=== PATIENT | female | born 2000 | race Caucasian/White ===

== ENCOUNTER 2020-12-02 08:15 | Outpatient (REF) | payer MEDICAID, SELFPAY ==
[2020-12-02 08:33] LABS: COVID-19 Test Negative (Negative)
== END 2020-12-02 08:16 | disposition home or self-care (01) ==
LOC: HO.LAB 08:15
PROVIDERS: Visit Provider Internal Medicine
DX: Z20.822 Contact with and (suspected) exposure to COVID-19 (principal)
CPT/HCPCS: 36415; 87635; C9803

== ENCOUNTER 2020-12-12 10:55 | Emergency (ER) | payer MEDICAID, SELFPAY ==
--- NOTE | ~2020-12-12 | CT_ITS ---
EXAMINATION: CT HEAD WITHOUT CONTRAST CLINICAL INFORMATION: Status post head injury. Headaches and dizziness. COMPARISON: None TECHNIQUE: Contiguous axial imaging was performed from the skull base to vertex without intravenous administration of contrast. This CT examination was performed using dose optimization techniques as appropriate, variously including the following: *Automated exposure control *Adjustment of mA and/or kV according to patient size (this includes techniques or standardized protocols for targeted exams where dose is matched to indication/reason for exam; i.e. extremities or head) *Use of iterative reconstruction technique DLP: 713 mGy-cm FINDINGS: There is no evidence of acute intracranial hemorrhage or territorial infarction. No abnormal mass effect or midline shift is seen. Sal to white matter differentiation is well preserved. No extra-axial fluid collections are identified. The ventricles are normal in size. There is no abnormal attenuation within the brain parenchyma. The osseous structures and soft tissues are normal. The mastoid air cells and visualized portions of the paranasal sinuses are well aerated. CT/CT head/brain wo con IMPRESSION: No acute intracranial pathology.
[2020-12-12 11:43] VITALS: BP 136/77; PULSE 80; RESP 18; TEMP 36.5; O2SAT 100; BMI 31.8
[2020-12-12 12:27] LABS: UPreg QC Valid YES; Urine Pregnancy NEGATIVE (NEGATIVE)
--- NOTE | 2020-12-12 12:47 | ED.HEATRA ---
HPI - Head Injury General Chief complaint: Head Injury Stated complaint: HEAD INJURY Time Seen by Provider: 12/12/20 12:09 Source: patient and family Mode of arrival: ambulatory Limitations: no limitations History of Present Illness HPI Narrative: 20-year-old female no significant past medical history presenting to the ED with complaints of head injury that occurred last night when she whacked a cabinet with her forehead no loss of consciousness although reports persistent pain with associated nausea and dizziness. Denies being on any blood thinners. Denies any other injury complaints or concerns at this time MD Complaint: head injury Onset (ago): day(s) (Last night) Mechanism of Injury: other (With cabinet) Place: home Loss of Consciousness: no Location of injury: frontal (/forehead) Severity: moderate Quality: aching Radiation: none Other Injuries: none Associated symptoms: nausea and other (Dizziness) Related Data Previous Rx's Medication Instructions Recorded acetaminophen [Tylenol Extra 1,000 mg PO QID PRN #14 tab 12/12/20 Strength] ondansetron HCl [Zofran] 4 mg PO Q8H PRN #14 tab 12/12/20 Allergies Allergy/AdvReac Type Severity Reaction Status Date / Time carrot Allergy Itching Verified 12/12/20 11:43 Review of Systems Review of Systems: Constitutional : No changes in activity, No lethargy, No recent prior head injury, No agitation, No increased fussiness ENT/Mouth : No Ear Pain, No Nasal discharge/drainage Eyes: No Eye Pain, No Swelling, No Redness, No Foreign Body, No Vision Changes Cardiovascular : No Chest Pain, No SOB Respiratory : No Cough Gastrointestinal : Positive Nausea, No Vomiting, No abdominal Pain Genitourinary : No Dysuria, No Urinary Frequency, No Urinary Incontinence, No Urgency, No Flank Pain Musculoskeletal : No joint pain, No neck stiffness, No back pain/injury Skin : No lacerations Neuro : Positive head injury, Positive persistent dizziness, No unsteady gait, No Paresthesias, No Loss of Consciousness, No altered mental status, No Headache Yes all other systems are reviewed and are negative [facility] Past Medical History Attestation statement: The following information was validated with the patient. Medical History Patient denies medical problems Social History Social History Advance Directives: No Advance Directives Information Provided: No Physical Exam Vital Signs: Vital Signs: Last Vital Signs Temp 97.7 F 12/12/20 11:43 Pulse 80 12/12/20 11:43 Resp 18 12/12/20 11:43 BP 136/77 12/12/20 11:43 Pulse Ox 100 12/12/20 11:43 Body Mass Index 31.8 Vital signs have been reviewed as normal and appeared to be correct. Blood pressure normal. Heart rate normal. Respiration rate normal. Temperature normal. Oxygen saturation normal. Appearance: Alert. Oriented X3. No acute distress. Head: Normal external exam. Normocephalic. Atraumatic. Able to rotate head bilaterally. Eyes: PERRLA. EOMI. No nystagmus noted. Conjunctiva and sclera normal. Eyelids normal. Corneal reflex normal. ENT: EAC normal. TM's Normal. Hearing normal. Pharynx normal. Uvula midline. tongue midline. Moist mucous membranes. No trismus noted. No drooling noted. No muffled voice noted. No nystagmus noted. Neck: Normal inspection. Neck supple. FROM. No adenopathy. Trachea midline. Thyroid Normal. No meningeal signs. No neck mass noted. CVS: Normal heart rate and rhythm. Heart sound normal. No murmurs noted. Pulses normal throughout. Respiratory: No respiratory distress. Painless inspiration. Breath sounds normal. No wheezes/rales/rhonchi noted. Chest nontender. No accessory muscle usage noted or decreased air movement noted. Abdomen: Soft and nontender. Bowel sounds normal in all 4 quadrants. No distention noted. No organomegaly noted. No visible injury noted. Back: No CVA tenderness. Full range of motion noted. Skin: Skin warm and dry. Normal skin color. Normal skin turgor. No rashes/lesions/lacerations noted. Extremities: No lower extremity edema. Extremities exhibit normal range of motion. Extremities nontender. Able to shrug shoulders bilaterally and keep up against resistance. Neuro: Oriented X 3. No motor deficit. No sensory deficit. Reflexes normal. Moving all extremities. No focal motor deficits. Cranial nerves II-XI intact bilaterally. Facial strength normal. Normal cognition. Speech normal. Gait normal. Strength 5/5 throughout. No pronator drift. No tremor noted. No fasciculations noted. No rigidity noted. Muscle tone normal throughout. No asterixis noted. Fgyymj-[id number] test normal. Heel to smart test normal. Tandem gait normal. Does not sway with eyes open. Romberg test negative. Rapid alternating movement upper extremity normal. Rapid alternating movement lower extremity normal. Hand drop from overhead Misses face. NIHSS score 0. Course Course Course Narrative: CT scan of brain within normal limits no acute processes noted. Will DC home with symptomatic treatment instructions to return if any new or worsening symptoms follow-up with primary care provider. Patient understanding with this plan. MDM - Head Injury MDM Narrative Medical decision making narrative: 12:23pm 20-year-old female no significant past medical history presenting to the ED with complaints of head injury that occurred last night when she whacked a cabinet with her forehead no loss of consciousness although reports persistent pain with associated nausea and dizziness. - on exam patient alert oriented x3. Mild tenderness to palpation to frontal/forehead aspect. No obvious deformities. No nystagmus is noted. Patient has a normal steady gait. Normal neuro exam. - Plan: CT scan of brain without contrast then re-evaluate. Differential Diagnosis Differential diagnosis: Likely concussion without loss of consciousness, closed head injury and postconcussion syndrome Medical Records Attestation: I reviewed the patient's medical records. Lab Data Labs: Lab Results 12/12/20 Range/Units 12:12 Urine Test NEGATIVE (NEGATIVE) Imaging Data CT scan of brain without contrast: Attestation: I personally reviewed and interpreted this imaging study as follows: Radiologist's impression: FINDINGS: There is no evidence of acute intracranial hemorrhage or territorial infarction. No abnormal mass effect or midline shift is seen. Sal to white matter differentiation is well preserved. No extra-axial fluid collections are identified. The ventricles are normal in size. There is no abnormal attenuation within the brain parenchyma. The osseous structures and soft tissues are normal. The mastoid air cells and visualized portions of the paranasal sinuses are well aerated. CT/CT head/brain wo con IMPRESSION: No acute intracranial pathology. Discharge Plan Discharge Clinical Impression: Closed head injury, Concussion without loss of consciousness, Postconcussion syndrome Patient Disposition: Home, Self-Care Instructions: Concussion (ED), Head Injury (ED) Additional Instructions: Your CT scan of your brain was normal you do not have any internal brain damage or any internal bleeding or fractures/broken bones at this time. You most likely have a concussion. Return if any new or worsening symptoms and follow up with her primary care provider. Prescriptions: New ondansetron HCl [Zofran] 4 mg tablet 4 mg PO Q8H PRN (Reason: nausea and vomiting) Qty: 14 RF: 0 acetaminophen [Tylenol Extra Strength] 500 mg tablet 1,000 mg PO QID PRN (Reason: fever or pain) Qty: 14 RF: 0 Referrals: [facility] [Primary Care Provider] - 2 days Stand Alone Forms: Work/School Release Print Language: Slovenian
== END 2020-12-12 15:09 | disposition home or self-care (01) ==
PROVIDERS: Emergency Provider Emergency Medicine
DX: S06.0X0A Concussion without loss of consciousness, initial encounter (principal); W22.8XXA Striking against or struck by other objects, initial encounter; R42 Dizziness and giddiness; R11.0 Nausea; Y93.9 Activity, unspecified; Y92.030 Kitchen in apartment as the place of occurrence of the external cause; Y99.9 Unspecified external cause status
CPT/HCPCS: 70450; 81025; 99283; 99284

== ENCOUNTER → 2021-01-06 08:37 | Outpatient (BNVA) | payer MEDICAID, SELFPAY | PROVIDERS: Visit Provider Advanced Practice Midwife | DX: N92.6 Irregular menstruation, unspecified (principal); E66.8 Other obesity | CPT/HCPCS: 81025; 99202 ==

== ENCOUNTER 2021-01-13 13:47 | Outpatient (REF) | payer MEDICAID, SELFPAY ==
--- NOTE | ~2021-01-13 | US_ITS ---
EXAMINATION: OBSTETRICAL ULTRASOUND, FIRST TRIMESTER HISTORY: 20-year-old with uncertain LMP LMP: 11/15/2020 COMPARISON: None in this TECHNIQUE: Real time transabdominal imaging with color and M-mode Doppler. Vaginal ultrasound was performed using an endovaginal probe. FINDINGS: A single, live IUP CRL of 2.1 mm c/w 5.6wks is noted. Heart Rate: 73 beats per minute. Both maternal ovaries are seen and appear normal. GESTATIONAL AGE: 1. GA from LMP: 8.3 wks 2. GA from AUA: 5.6 wks ESTIMATED DATE OF DELIVERY: 1. MARIJA from LMP: 08/22/2021 2. MARIJA from AUA: 09/03/2021 US/US OB pelvic and transvaginal IMPRESSION: 1. A single live IUP 2. CRL is consistent with 5.6 weeks. Please adjust her MARIJA to 09/03/2021 based on today's examination 3. The heart rate is slow. However, it does may be appropriate for this gestational age. Clinical correlation is advised. Consider a follow-up ultrasound in approximately one week if clinically indicated. Thank you very much for this referral. This note was generated with a voice recognition program. Please excuse any errors which may have been overlooked during my review of this note. Sometimes these errors may affect the content or meaning of a given sentence.
== END 2021-01-13 13:48 | disposition home or self-care (01) ==
LOC: HO.US 13:47
PROVIDERS: Visit Provider Advanced Practice Midwife
DX: O20.0 Threatened abortion (principal)
CPT/HCPCS: 76801; 76817; 99212

== ENCOUNTER 2021-01-14 13:15 | Emergency (ER) | payer MEDICAID, SELFPAY ==
--- NOTE | ~2021-01-14 | US_ITS ---
EXAMINATION: OBSTETRICAL ULTRASOUND, FIRST TRIMESTER HISTORY: 20-year-old with uncertain LMP LMP: 11/15/2020 COMPARISON: None in this TECHNIQUE: Real time transabdominal imaging with color and M-mode Doppler. Vaginal ultrasound was performed using an endovaginal probe. FINDINGS: A single, live IUP CRL of 2.1 mm c/w 5.6wks is noted. Heart Rate: 73 beats per minute. Both maternal ovaries are seen and appear normal. GESTATIONAL AGE: 1. GA from LMP: 8.3 wks 2. GA from AUA: 5.6 wks ESTIMATED DATE OF DELIVERY: 1. MARIJA from LMP: 08/22/2021 2. MARIJA from AUA: 09/03/2021 US/US OB pelvic and transvaginal IMPRESSION: 1. A single live IUP 2. CRL is consistent with 5.6 weeks. Please adjust her MARIJA to 09/03/2021 based on today's examination 3. The heart rate is slow. However, it does may be appropriate for this gestational age. Clinical correlation is advised. Consider a follow-up ultrasound in approximately one week if clinically indicated. Thank you very much for this referral. This note was generated with a voice recognition program. Please excuse any errors which may have been overlooked during my review of this note. Sometimes these errors may affect the content or meaning of a given sentence.
[2021-01-14 14:07] VITALS: BP 136/73; PULSE 95; RESP 16; TEMP 37.2; O2SAT 98; BMI 40.1
[2021-01-14 15:03] VITALS: BP 132/84; PULSE 96; TEMP 37.5; O2SAT 100
--- NOTE | 2021-01-14 15:13 | PC.NURSE ---
provider to bedside for primary eval
--- NOTE | 2021-01-14 15:31 | ED_ITS ---
HPI - General Chief complaint: Abdominal Pain Stated complaint: ABD PAIN Time Seen by Provider: 01/14/21 15:06 Source: patient Mode of arrival: ambulatory Limitations: no limitations History of Present Illness HPI Narrative: 20-year-old female who is [id number] currently 5.6 weeks gestational age had an ultrasound yesterday by OBGYN and had a low heart tone of 79 and was instructed to have a repeat ultrasound in 1 week presenting to the ED with complaints of suprapubic abdominal pain/cramping since last night. Denies any dizziness, fevers, chest pain, shortness of breath, dysuria, hematuria, abno rmal vaginal discharge, abnormal vaginal bleeding, diarrhea or constipation or any other symptoms complaints or concerns at this time. MD Complaint: abdominal pain Onset (ago): day(s) (Since last night) Pain Consistency: constant Location: pelvis (Suprapubic abdomen) Severity: mild Quality: Cramping and Aching Relieving factors: none Exacerbating factors: none Associated symptoms: denies other symptoms Vaginal discharge: none Vaginal bleeding: none Date of Last Menstrual Period: 11/15/20 Patient : Yes Number of Weeks : 5.6 OB History - Current : other (She was seen yesterday by OBGYN and they reported possible and MAB. Her ultrasound showed 5.6 weeksGA and a low heart tone of 79 and they instructed her to have a repeat ultrasound in 1 week) care: followed by OB Related Data : 1 Para: 0 Total number of abortions (spontaneous and elective): 0 Previous Rx's Medication Instructions Recorded acetaminophen [Tylenol Extra 1,000 mg PO QID PRN #14 tab 12/12/20 Strength] ondansetron HCl [Zofran] 4 mg PO Q8H PRN #14 tab 12/12/20 Allergies Allergy/AdvReac Type Severity Reaction Status Date / Time carrot Allergy Itching Verified 01/06/21 09:23 Review of Systems Review of Systems: Constitutional : No Fever, No Chills ENT/Mouth : No sore throat, No Rhinorrhea Eyes: No Eye Pain, No Redness Cardiovascular : No Chest Pain, No SOB Respiratory : No Cough, No Sputum, No Wheezing Gastrointestinal : No Nausea, No Vomiting, No Diarrhea, positive abdominal pain, Genitourinary : No irregular bleeding, No Dysuria, No Urinary Frequency, No pelvic pain, No abnormal vaginal discharge Musculoskeletal : No Myalgias Skin : No rash Neuro : No Weakness, No Headache Psych : No Anxiety/Panic, No Depression Heme/Lymph: No bruising, No Lymphadenopathy Endocrine : No Polyuria, No Polydipsia Yes all other systems are reviewed and are negative [facility] Past Medical History Attestation statement: The following information was validated with the patient. Medical History Asthma Patient denies medical problems : 1 Para: 0 Total number of abortions (spontaneous and elective): 0 Date of Last Menstrual Period: 11/15/20 Social History Social History Alcohol intake: never Patient Tobacco Use Status: Never used Tobacco Use of substances other than those prescribed or required for medical reasons: No Advance Directives: No Advance Directives Information Provided: No Patient : Yes Physical Exam Vital Signs: Vital Signs: Last Vital Signs Temp 99.5 F 01/14/21 15:03 Pulse 96 01/14/21 15:03 Resp 16 01/14/21 14:07 BP 132/84 01/14/21 15:03 Pulse Ox 100 01/14/21 15:03 Body Mass Index 40.1 vital signs have been reviewed as normal and appeared to be correct. Blood pressure normal. Heart rate normal. Respiration rate normal. Temperature normal. Oxygen saturation normal. Appearance: Alert. Oriented X3. No acute distress. Head: Normal external exam. Normocephalic. Eyes: PERRLA. EOMI. Conjunctiva and sclera normal. Eyelids normal. ENT: Pharynx normal. Uvula midline. Moist mucous membranes. Neck: Normal inspection. Neck supple. FROM. No adenopathy. No meningeal signs. CVS: Normal heart rate and rhythm. Heart sound normal. No murmurs noted. Pulses normal throughout. Respiratory: No respiratory distress. Painless inspiration. Breath sounds normal. No wheezes/rales/rhonchi noted. Chest nontender. No accessory muscle usage noted or decreased air movement noted. Abdomen: Soft and mild tenderness to palpation suprapubically. Nondistended. No guarding. No rigidity. Bowel sounds normal in all 4 quadrants. No distention noted. No organomegaly noted. No visible injury noted. No rebound tenderness. Negative Rovsing sign. Negative obturator's sign. Negative psoas sign. Negative Regalado sign. Back: No CVA tenderness. Full range of motion noted. Skin: Skin warm and dry. Normal skin color. Normal skin turgor. No rashes/lesions/lacerations noted. Extremities: No lower extremity edema noted. No calf tenderness noted. Extremities exhibit normal range of motion. Extremities nontender. Neuro: Oriented X 3. No motor deficit. No sensory deficit. Reflexes normal. Normal steady gait. Course Course Course Narrative: 15:15pm - 20-year-old female who is [id number] currently 5.6 weeks gestational age had an ultrasound yesterday by OBGYN and had a low heart tone of 79 and was instructed to have a repeat ultrasound in 1 week presenting to the ED with c omplaints of suprapubic abdominal pain/cramping since last night. Plan: Labs, UA, serum quant an OB ultrasound then re-evaluate. Reevaluation(s) Reevaluation #1: - all labs within normal limits. Serum quant still pending. P atient also pending OB ultrasound. Sign out to next provider pending above. Time: 16:49 Procedures Perimortem Number of Weeks : 5.6 MDM - OB/Uterine Contractions Medical Records Attestation: I reviewed the patient's medical records. Lab Data Attestation: I reviewed the patient's lab results. Result diagrams: 01/14/21 15:30 01/14/21 15:30 Labs: Lab Results 01/14/21 01/14/21 01/14/21 Range/Units 15:30 15:30 15:30 WBC 9.5 (4.8-10.8) X10*3/uL RBC 4.86 (4.20-5.50) X10*6/uL Hgb 13.5 (12.0-16.0) g/dl Hct 38.7 (37-47) % MCV 79.6 L (80-98) fL MCH 27.8 (27.0-33.0) pg MCHC 34.9 (31.0-35.0) g/dl RDW 11.8 (11.0-16.0) % Plt Count 341 (160-400) X10*3/uL MPV 8.4 L (9.4-12.3) fL Immature Gran % (Auto) 0.2 (0.0-0.4) % Neut % (Auto) 78.2 H (45-73) % Lymph % (Auto) 15.8 L (20-40) % [place] % (Auto) 5.4 (2-11) % Eos % (Auto) 0.3 (0-4) % Baso % (Auto) 0.1 (0-2) % Lymph # (Auto) 1.5 (1.2-4.9) X10*3/uL [place] # (Auto) 0.5 (0.1-1.2) X10*3/uL Eos # (Auto) 0.0 (0.0-0.4) X10*3/uL Baso # (Auto) 0.0 (0.0-0.2) X10*3/uL Abs Immat Gran (auto) 0.02 (0.00-0.03) X10*3/uL Absolute Neuts (auto) 7.4 (2.0-8.3) X10*3/uL Absolute Nucleated RBC 0.000 (0.0-0.012) X10*3/uL Nucleated RBC % (auto) 0.0 (0.0-0.2) /100WBC PT 12.2 (10.8-13.0) SEC INR 1.0 (0.9-1.1) Sodium 138 (135-145) mmol/L Potassium 4.7 (3.3-5.1) mmol/L Chloride 106 (96-108) mmol/L Carbon Dioxide 26 (22-29) mmol/L Anion Gap 11 L (12-20) BUN 9 (9-16) mg/dL Creatinine 0.66 (0.5-1.4) mg/dL Estim Creat Clear Calc 155.8 Estimated GFR > 60 Random Glucose 87 (60-115) mg/dL Calcium 9.5 (8.4-10.2) mg/dL Magnesium 1.9 (1.6-2.6) mg/dL Total Bilirubin 0.3 (0.0-1.0) mg/dL AST 16 (5-31) U/L ALT 11 (0-31) U/L Alkaline Phosphatase 69 (39-117) U/L Total Protein 6.9 (6.5-8.0) g/dL Albumin 4.1 (3.5-5.0) g/dL Discharge Plan Discharge Prescriptions: No Action ondansetron HCl [Zofran] 4 mg tablet 4 mg PO Q8H PRN (Reason: nausea and vomiting) Qty: 14 RF: 0 acetaminophen [Tylenol Extra Strength] 500 mg tablet 1,000 mg PO QID PRN (Reason: fever or pain) Qty: 14 RF: 0
[2021-01-14 15:37] LABS: Basophils Percent Auto 0.1 % (0-2); Eosinophils Percent Auto 0.3 % (0-4); Hematocrit 38.7 % (37-47); Hemoglobin 13.5 g/dl (12.0-16.0); Imm Gran Abs Auto 0.02 X10*3/uL (0.00-0.03); Imm Gran Pct Auto 0.2 % (0.0-0.4); Lymphocytes Absolute Auto 1.5 X10*3/uL (1.2-4.9); Lymphocytes Percent Auto 15.8 % (20-40); MANUAL DIFF FLAG NO; Mean Corpuscular HGB Conc 34.9 g/dl (31.0-35.0); Mean Corpuscular Hemoglobin 27.8 pg (27.0-33.0); Mean Corpuscular Volume 79.6 fL (80-98); Mean Platelet Volume 8.4 fL (9.4-12.3); Monocytes Absolute Auto 0.5 X10*3/uL (0.1-1.2); Monocytes Percent Auto 5.4 % (2-11); Neutrophils Absolute Auto 7.4 X10*3/uL (2.0-8.3); Neutrophils Percent Auto 78.2 % (45-73); Platelet Count 341 X10*3/uL (160-400); Red Blood Count 4.86 X10*6/uL (4.20-5.50); Red Cell Distribution Width 11.8 % (11.0-16.0); White Blood Count 9.5 X10*3/uL (4.8-10.8)
[2021-01-14 15:49] LABS: Prothrombin Time 12.2 SEC (10.8-13.0)
[2021-01-14 16:22] LABS: Alanine Aminotransferase 11 U/L (0-31); Albumin Level 4.1 g/dL (3.5-5.0); Alkaline Phosphatase 69 U/L (39-117); Anion Gap 11 (12-20); Aspartate Amino Transferase 16 U/L (5-31); Bilirubin Total 0.3 mg/dL (0.0-1.0); Blood Urea Nitrogen 9 mg/dL (9-16); Calcium 9.5 mg/dL (8.4-10.2); Carbon Dioxide 26 mmol/L (22-29); Chloride 106 mmol/L (96-108); Creatinine Clr Calc Pharmacy 155.8; Estimated Glomerular Filt Rate > 60; Glucose Random 87 mg/dL (60-115); Magnesium 1.9 mg/dL (1.6-2.6); Potassium 4.7 mmol/L (3.3-5.1); Sodium 138 mmol/L (135-145); Total Protein 6.9 g/dL (6.5-8.0)
[2021-01-14 17:38] VITALS: BP 128/66
[2021-01-14 20:08] LABS: Glucose Urine UA NEG (NEG); Leukocyte Esterase Urine NEG (NEG); Nitrite Urine NEG (NEG); Specific Gravity - Urine 1.025 (1.005-1.025); Urine Blood NEG (NEG); Urine Ketones NEG (NEG); Urine Protein NEG (NEG-TRACE)
--- NOTE | 2021-01-14 20:11 | PC.NURSE ---
UA obtained and sent.
[2021-01-14 20:15] LABS: Appearance Urine HAZY; Color Urine YELLOW
[2021-01-14 20:26] LABS: Glucose Urine UA NEG (NEG); Leukocyte Esterase Urine NEG (NEG); Nitrite Urine NEG (NEG); Specific Gravity - Urine 1.025 (1.005-1.025); Urine Blood NEG (NEG); Urine Ketones NEG (NEG); Urine Protein NEG (NEG-TRACE)
[2021-01-14 20:30] LABS: Appearance Urine HAZY; Color Urine YELLOW
[2021-01-14 21:00] VITALS: BP 110/80; PULSE 84; RESP 16
--- NOTE | 2021-01-14 21:06 | PC.NURSE ---
This RN calling U/S as the U/S results have not been read/posted. U/S not answering. Pt discussing issue in Radiology. Radiology looking into issue.
--- NOTE | 2021-01-14 21:32 | PC.NURSE ---
Pt provided with U/S results, aware of plan to DC home. Pt awaiting DC paperwork.
== END 2021-01-14 21:47 | disposition home or self-care (01) ==
PROVIDERS: Nurse Practitioner Family; Physician Assistant Medical; Emergency Provider Emergency Medicine
DX: O26.891 Other specified pregnancy related conditions, first trimester (principal); R10.30 Lower abdominal pain, unspecified; O36.8310 Maternal care for abnormalities of the fetal heart rate or rhythm, first trimester, not applicable or unspecified; Z3A.01 Less than 8 weeks gestation of pregnancy
CPT/HCPCS: 36415; 76801; 76817; 80053; 81003; 83735; 84702; 85025; 85610; 86900; 86901; 99284

== ENCOUNTER 2021-01-20 09:49 | Outpatient (REF) | payer MEDICAID, SELFPAY ==
--- NOTE | ~2021-01-20 | US_ITS ---
EXAMINATION: OBSTETRICAL ULTRASOUND, FIRST TRIMESTER HISTORY: 20-year-old at 7.1 weeks of gestation Viability LMP: Unknown COMPARISON: 01/14/2021 TECHNIQUE: Real time transabdominal imaging with color and M-mode Doppler. FINDINGS: A single, live IUP CRL of 4.8 mm c/w 6.2wks is noted. No heart motion seen. The right ovary is within normal limits. Left ovary was not visible. No free fluid in US/US OB <= 14 weeks fetus IMPRESSION: 1. The finding is consistent with missed AB. Discussion: A reviewed today's findings and informed her that she had miscarried. We discussed some of the common causes for first trimester miscarriage. She was informed that one first trimester miscarriage does not influence her prognosis for a successful, subsequent pregnancies. I reviewed the options for management MAB. These include expectant management, medical and dilatation and curettage. She will follow-up with you discuss her decision. Thank you very much for this referral. Total time 20 minutes. The time spent was devoted to counseling the patient about the disease and diagnosis, coordinating care including reviewing her records, pertinent lab data and studies, as well as discussing diagnostic evaluation and workup, plan therapeutic interventions and future disposition of care. This includes any additional research needed to obtain further information in formulating the plan of care of this patient. This note was generated with a voice recognition program. Please excuse any errors which may have been overlooked during my review of this note. Sometimes these errors may affect the content or meaning of a given sentence.
== END 2021-01-20 09:50 | disposition home or self-care (01) ==
LOC: HO.US 09:49
PROVIDERS: Visit Provider Advanced Practice Midwife
DX: O20.0 Threatened abortion (principal); N92.6 Irregular menstruation, unspecified
CPT/HCPCS: 76801

== ENCOUNTER → 2021-01-23 12:08 | Outpatient (BNVA) | payer MEDICAID, SELFPAY | PROVIDERS: Visit Provider Advanced Practice Midwife ==

== ENCOUNTER → 2021-01-27 11:29 | Outpatient (BNVA) | payer MEDICAID, SELFPAY | PROVIDERS: Visit Provider Advanced Practice Midwife | CPT/HCPCS: 99212 ==

== ENCOUNTER 2021-02-08 19:06 | Emergency (ER) | payer MEDICAID, SELFPAY ==
--- NOTE | ~2021-02-08 | US_ITS ---
EXAMINATION: PELVIC ULTRASOUND CLINICAL INFORMATION: Exam on 01/20 showed no FHR,pt states no passage of POC? w/ vag bleed now COMPARISON: 01/20/2021 TECHNIQUE: Transabdominal scanning only was performed. FINDINGS: The gestational sac seen on the 01/20/2021 study is no longer present . There is some focal thickening in the lower uterine segment consistent with retained products of conception. No free intraperitoneal fluid was seen. The ovaries were not imaged. US/US OB limited IMPRESSION: Previously seen gestational sac no longer present. Focal thickening in the lower uterine segment may represent retained products of conception.
[2021-02-08 19:11] VITALS: BP 141/84; PULSE 102; RESP 18; TEMP 36.6; O2SAT 98; BMI 40.7
--- NOTE | 2021-02-08 19:47 | PC.NURSE ---
1945-pt gave what appeared to be intact sac wrapped in tissue paper. sample placed in specimen cup, pt lable time and neumonics on sample. double bagged. specimen placed at change station.
--- NOTE | 2021-02-08 21:24 | PC.NURSE ---
PT REPORTS SOAKING 7-8 PADS OVER PAST 2 HRS WITH INCREASE IN CLOTS. SKIN COLOUR APPROPRIATE FOR ETHNICITY, WARM, DRY.
[2021-02-08 21:30] VITALS: BP 142/88; PULSE 88; RESP 17; TEMP 37.2; O2SAT 100
--- NOTE | 2021-02-08 22:08 | ED_ITS ---
HPI - General Chief complaint: Vaginal Bleeding Stated complaint: miscarriage Time Seen by Provider: 02/08/21 21:11 Source: patient Mode of arrival: ambulatory History of Present Illness HPI Narrative: 20-year-old female with history of asthma comes in after she was diagnosed with then threatened approximately 2 weeks ago and then had follow-up appointment that was reviewed by myself on at which time patient stated that she had not passed products of conception, but now presents stating that vaginal bleeding began earlier today with significant cramping. Patient states that while she was waiting in the waiting room that she passed a significant amount of clotting and thereafter she states that her abdominal cramping as well as the bleeding has begun to improve significantly. Related Data Previous Rx's Medication Instructions Recorded acetaminophen [Tylenol Extra 1,000 mg PO QID PRN #14 tab 12/12/20 Strength] ondansetron HCl [Zofran] 4 mg PO Q8H PRN #14 tab 12/12/20 Allergies Allergy/AdvReac Type Severity Reaction Status Date / Time carrot Allergy Itching Verified 01/27/21 11:30 Review of Systems Review of Systems: Pertinent positives and negatives as stated in HPI 10 point review of systems is otherwise negative. PMFSH Past Medical History Source: nursing notes reviewed Medical History Asthma Patient denies medical problems Social History Social History Alcohol intake: never Patient Tobacco Use Status: Never used Tobacco Advance Directives: No Advance Directives Information Provided: Yes Patient : Yes (miscarrage.) Physical Exam Vital Signs: Vital Signs: Last Vital Signs Temp 98.5 F 02/08/21 23:25 Pulse 91 02/08/21 23:25 Resp 18 02/08/21 23:25 BP 113/74 02/08/21 23:25 Pulse Ox 100 02/08/21 23:25 Body Mass Index 40.7 VITAL SIGNS: Reviewed. GENERAL: Well developed, well nourished, in no acute distress. HEAD: Normocephalic/atraumatic, EYES: PERRLA, EOMI without pallor EARS: Ext canals without abnormality OROPHARYNX: no oral lesions noted, posterior pharynx clear, moist mucosa NECK: Supple, no adenopathy LUNGS: Normal breath sounds. No adventitious sounds or accessory muscle use. SpO2<100> CARDIOVASCULAR: Regular rate and rhythm without noted murmurs ABDOMEN: Soft, non-tender, non-distended with bowel sounds. SKIN: Inspection of the skin reveals no rashes, pallor NEUROLOGIC: Alert and oriented x 4. Strength and sensation to light touch were grossly intact x 4. Course Course Course Narrative: 20-year-old female with history and clinical presentation consistent with passage of products of conception without evidence infection as would be noted with fever, chills. Patient is currently undergoing RhoGAM protocol through her padded products finisher as per the note on 01/27. Patient is known to be O negative. Will be obtaining ultrasound as well as providing patient with combination analgesics. 0200: Pelvic exam performed with small amounts of clots noted but no active hemorrhaging visualized at cervical os even when patient instructed to cough. Review of all investigations consistent with evidence requiring RhoGAM shot and patient was provided with 300 mcg IM. She was then discharged in stable condition with instructions to follow-up with Dr. Humphries/Anabell Cast in the morning. Reevaluation(s) Reevaluation #1: I discussed the case with Dr Humphries, who recommends evaluating the cervix for possible tissue retention by doing a pelvic, perform an antibody screen and if negative recommends administering 300 mcg of RhoGAM. Time: 00:33 MDM - OB/Uterine Contractions Lab Data Labs: Lab Results 02/09/21 Range/Units 02:38 Blood Type O Negative Antibody Screen NEGATIVE Antibody Titer TNP Discharge Plan Discharge Clinical Impression: SAB (spontaneous ) Patient Disposition: Home, Self-Care Instructions: Miscarriage (ED), Rho(D) Immune Globulin (By injection) Additional Instructions: You will need to follow-up with Anabell Cast/Dr Humphries in the morning. Recommend Tylenol/ibuprofen as needed for pain control. Return to the ER for acute worsening of symptoms, especially vaginal bleeding. Prescriptions: No Action ondansetron HCl [Zofran] 4 mg tablet 4 mg PO Q8H PRN (Reason: nausea and vomiting) Qty: 14 RF: 0 acetaminophen [Tylenol Extra Strength] 500 mg tablet 1,000 mg PO QID PRN (Reason: fever or pain) Qty: 14 RF: 0 Referrals: Anabell Cast CNM [Certified Nurse Rn Float] - 2 days (Re-evaluation after patient passed POC and treated with initial RhoGAM.)
[2021-02-08] MEDS: Acetaminophen 325 MG TABLET 975 MG PO (22:38)
[2021-02-08] MEDS: Ibuprofen 400 MG TABLET PO (22:38)
[2021-02-08 23:25] VITALS: BP 113/74; PULSE 91; RESP 18; TEMP 36.9; O2SAT 100
[2021-02-09 04:00] VITALS: BP 137/89; PULSE 84; RESP 16; O2SAT 100
[2021-02-09] MEDS: Rho(D) Immune Globulin 300 MCG SYRINGE IM (04:08)
== END 2021-02-09 04:14 | disposition home or self-care (01) ==
PROVIDERS: Emergency Provider Student in an Organized Health Care Education/Training Program
DX: O03.9 Complete or unspecified spontaneous abortion without complication (principal)
CPT/HCPCS: 76815; 86850; 86900; 86901; 96372; 99284; J2790

== ENCOUNTER → 2021-02-10 11:14 | Outpatient (BNVA) | payer MEDICAID, SELFPAY | PROVIDERS: Visit Provider Advanced Practice Midwife ==

== ENCOUNTER 2021-02-28 12:49 | Outpatient (REF) | payer MEDICAID, SELFPAY ==
[2021-03-01 06:13] LABS: CT PCR NOT DETECTED (Not Detect.); NG PCR NOT DETECTED (Not Detect.)
[2021-03-01 09:37] LABS: BV Int Neg Control Negative (Negative); BV Int Pos Control Positive (Positive)
== END 2021-02-28 12:50 | disposition home or self-care (01) ==
LOC: HO.LAB 12:49
PROVIDERS: Visit Provider Advanced Practice Midwife
DX: O02.1 Missed abortion (principal); Z11.3 Encounter for screening for infections with a predominantly sexual mode of transmission; E66.8 Other obesity; Z20.2 Contact with and (suspected) exposure to infections with a predominantly sexual mode of transmission
CPT/HCPCS: 87480; 87491; 87510; 87591; 87660; 99212

== ENCOUNTER 2022-06-23 12:41 | Emergency (ER) | payer MEDICAID, SELFPAY ==
--- NOTE | ~2022-06-23 | XR_ITS ---
EXAMINATION: XR ANKLE, RIGHT CLINICAL INFORMATION: Popliteal and ankle pain COMPARISON: None TECHNIQUE: AP, lateral, and mortise views of the right ankle. FINDINGS: The bones and soft tissues are normal. No fracture. Alignment is anatomic. Joint spaces are maintained. No joint effusion. XR/XR ankle RT min 3V IMPRESSION: Normal right ankle.
--- NOTE | 2022-06-23 13:19 | ED.LOWEXIN ---
HPI - Extremity Injury (Lower) General Chief Complaint: Extremity Injury, Lower <Tanna Mccrary CNP - Last Filed: 06/23/22 13:23> Stated Complaint: r foot pain <Tanna Mccrary CNP - Last Filed: 06/23/22 13:23> Time Seen by Provider: 06/23/22 14:11 <Tanna Mccrary CNP - Last Filed: 06/23/22 13:23> Source: patient <ARGENTINA Russell - Last Filed: 06/23/22 14:58> Mode of arrival: ambulatory <ARGENTINA Russell Last Filed: 06/23/22 14:58> Limitations: no limitations <ARGENTINA Russell Last Filed: 06/23/22 14:58> History of Present Illness HPI Narrative: 22 yo female presents to the ER for evaluation of right foot pain after she injured it at work. 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 She denies rolling the ankle and states she was just walking when she felt the pain. Yesterday was black Saturday so she needed to continue working despite having some pain. She woke up today with ongoing pain on the top of the right foot into the ankle. She thinks she may have overdone it yesterday. She reports some swelling at the top of the right foot but no ankle swelling. No other injuries. <ARGENTINA Russell - Last Filed: 06/23/22 14:58> MD complaint: foot injury <ARGENTINA Russell - Last Filed: 06/23/22 14:58> Onset (ago): day(s) <ARGENTINA Russell Last Filed: 06/23/22 14:58> Injury: Right: foot <ARGENTINA Russell Last Filed: 06/23/22 14:58> Type of Injury: unknown <ARGENTINA Russell Last Filed: 06/23/22 14:58> Place: work <ARGENTINA Russell Last Filed: 06/23/22 14:58> Severity: moderate <ARGENTINA Russell Last Filed: 06/23/22 14:58> Severity scale (1-10): 5 <ARGENTINA Russell - Last Filed: 06/23/22 14:58> Relieving factors: immobilization and rest <ARGENTINA Russell - Last Filed: 06/23/22 14:58> Exacerbating factors: weight bearing, movement and palpation <ARGENTINA Russell - Last Filed: 06/23/22 14:58> Associated symptoms: swelling and ambulatory <ARGENTINA Russell - Last Filed: 06/23/22 14:58> Other symptoms: none <ARGENTINA Russell - Last Filed: 06/23/22 14:58> Related Data Home Medications: Home Medications Medication Instructions Recorded Confirmed ibuprofen 600 mg tablet 600 mg PO Q6H PRN 02/10/21 02/28/21 Previous Rx's Medication Instructions Recorded metronidazole 500 mg tablet 500 mg PO BID 7 days #14 tabs 03/03/21 (Flagyl) ibuprofen 600 mg tablet 600 mg PO TID PRN pain #20 tabs 06/23/22 <Tanna Mccrary CNP - Last Filed: 06/23/22 13:23> Allergies/Adverse Reactions: Allergies Allergy/AdvReac Type Severity Reaction Status Date / Time carrot Allergy Itching Verified 02/28/21 13:38 <Tanna Mccrary CNP - Last Filed: 06/23/22 13:23> Review of Systems Review of Systems: Constitutional: No Fever, No Chills Cardiovascular: No Chest Pain, No SOB Gastrointestinal: No Nausea, No Vomiting Musculoskeletal: + joint pain, +Myalgias Skin: No Skin Lesions, No rash Neuro: No Weakness, No Numbness Psych: + Anxiety/Panic Heme/Lymph: No Bruising, No Lymphadenopathy <ARGENTINA Russell - Last Filed: 06/23/22 14:58> [facility] Past Medical History Medical History: Medical History Asthma Patient denies medical problems <Tanna Mccrary CNP - Last Filed: 06/23/22 13:23> Social History Social History: Social History Alcohol intake: never Patient Tobacco Use Status: Never used Tobacco Advance Directives: No Advance Directives Information Provided: No <Tanna Mccrary CNP - Last Filed: 06/23/22 13:23> Physical Exam Vital Signs: Vital Signs: Last Vital Signs Pulse 85 06/23/22 13:20 Resp 16 06/23/22 13:20 Pulse Ox 100 06/23/22 13:20 O2 Del Method 06/23/22 13:20 BMI result Body Mass Index 33.6 <Tanna Mccrary CNP - Last Filed: 06/23/22 13:23> Vital Signs: Last Vital Signs Pulse 85 06/23/22 13:20 Resp 16 06/23/22 13:20 Pulse Ox 100 06/23/22 13:20 O2 Del Method 06/23/22 13:20 BMI result Body Mass Index 33.6 <ARGENTINA Russell - Last Filed: 06/23/22 14:58> Appearance: Alert. Oriented X3. No acute distress. HEENT: normal inspection CVS: Normal heart rate and rhythm. Pulses normal. Respiratory: No respiratory distress. Skin: Skin warm and dry. Normal skin color. Normal skin turgor. No rashes. Extremities: Right dorsal foot with mild generalized swelling and mild tenderness throughout without any point tenderness. Normal range of motion of the right ankle. Normal range of motion of all toes. No sensory deficit. Foot is warm and well perfused. Neurovascularly intact. Neuro: Oriented X 3. No motor deficit. No sensory deficit. Steady gait, no limp <ARGENTINA Russell - Last Filed: 06/23/22 14:58> Course Course Course Narrative: RME: 22 y.o. female presenting for traumatic right ankle pain. Onset of symptoms was 5 days ago while at work, was walking through store, heard a pop and began to develop pain that is made worse with weight bearing. movement. Has not trialed any medications to help with this. States she did apply ice without improvement. No past injuries to this ankle. PE: Mild anterior ankle soft tissue swelling, 2+ DP/PT pulse bilaterally, decreased AROM. Plan: XR right ankle, declines ibuprofen/tylenol <Tanna Mccrary CNP - Last Filed: 06/23/22 13:23> Reevaluation(s) Reevaluation #1: X-rays normal. Will treat for sprain/strain. Placed an Kevin wrap for comfort and support. We discussed rice therapy and she was encourage follow-up with her primary care doctor if pain persists. Stable for DC. <ARGENTINA Russell - Last Filed: 06/23/22 14:58> Procedures Orthopedic Splinting/Casting Injury #1: Lower Extremity Injury Location: ankle and foot <ARGENTINA Russell - Last Filed: 06/23/22 14:58> Lower Extremity Immobilizer: Kevin wrap <ARGENTINA Russell - Last Filed: 06/23/22 14:58> Discharge Plan Discharge Clinical Impression: Ankle sprain <Tanna Mccrary CNP - Last Filed: 06/23/22 13:23> Patient Disposition: Home, Self-Care <Tanna Mccrary CNP - Last Filed: 06/23/22 13:23> Instructions: Ankle Sprain (ED) <Tanna Mccrary CNP - Last Filed: 06/23/22 13:23> Additional Instructions: Your x-ray today was normal. Rest your foot and elevate your foot when possible. Recommend KEVIN wrap for support and compression. Use ice several times per day for the next 48 hours. You may bear weight as tolerated. Take Motrin and/or Tylenol as needed for pain. Follow up with your doctor as needed. <Tanna Mccrary CNP - Last Filed: 06/23/22 13:23> Prescriptions: New ibuprofen 600 mg tablet 600 mg PO TID PRN (Reason: pain) Qty: 20 0RF No Action metronidazole [Flagyl] 500 mg tablet 500 mg PO BID 7 Days Qty: 14 0RF Rx Instructions: Take with food, Avoid alcohol and vinegar products ibuprofen 600 mg tablet 600 mg PO Q6H PRN <Tanna Mccrary CNP - Last Filed: 06/23/22 13:23> Stand Alone Forms: Work/School Release <Tanna Mccrary CNP - Last Filed: 06/23/22 13:23>
[2022-06-23 13:20] VITALS: PULSE 85; RESP 16; O2SAT 100; BMI 33.6
== END 2022-06-23 15:16 | disposition home or self-care (01) ==
LOC: HO.ED 14:51
PROVIDERS: Emergency Provider Emergency Medicine
DX: S93.401A Sprain of unspecified ligament of right ankle, initial encounter (principal); X50.1XXA Overexertion from prolonged static or awkward postures, initial encounter; Y93.01 Activity, walking, marching and hiking; Y92.512 Supermarket, store or market as the place of occurrence of the external cause; Y99.0 Civilian activity done for income or pay
CPT/HCPCS: 73610; 99282; 99283

== ENCOUNTER 2024-06-14 21:01 | Emergency (ER) | payer OTHER, SELFPAY ==
[2024-06-14 21:03] VITALS: BP 148/89; PULSE 97; RESP 18; TEMP 36.9; O2SAT 99; BMI 33.7
[2024-06-14 21:23] LABS: MANUAL DIFF FLAG NO
[2024-06-14 21:24] LABS: Basophils Percent Auto 0.3 % (0-2); Eosinophils Percent Auto 0.5 % (0-4); Hematocrit 36.4 % (37.0-47.0); Hemoglobin 12.9 g/dl (12.0-16.0); Imm Gran Abs Auto 0.02 X10*3/uL (0.00-0.03); Imm Gran Pct Auto 0.3 % (0.0-0.4); Lymphocytes Absolute Auto 2.3 X10*3/uL (1.2-4.9); Lymphocytes Percent Auto 30.6 % (20-40); Mean Corpuscular HGB Conc 35.4 g/dl (31.0-35.0); Mean Corpuscular Hemoglobin 28.5 pg (27.0-33.0); Mean Corpuscular Volume 80.4 fL (80.0-98.0); Mean Platelet Volume 8.2 fL (9.4-12.3); Monocytes Absolute Auto 0.4 X10*3/uL (0.1-1.2); Monocytes Percent Auto 5.8 % (2-11); Neutrophils Absolute Auto 4.6 x10*3/uL (2.0-8.3); Neutrophils Percent Auto 62.5 % (45-73); Platelet Count 347 X10*3/uL (160-400); Red Blood Count 4.53 X10*6/uL (4.20-5.50); Red Cell Distribution Width 11.7 % (11.0-16.0); White Blood Count 7.4 X10*3/uL (4.8-10.8)
[2024-06-14 21:43] LABS: Appearance Urine Clear; Color Urine Yellow; Glucose Urine UA Negative (Negative); Leukocyte Esterase Urine Trace (Negative); Nitrite Urine Negative (Negative); Specific Gravity - Urine <= 1.005 (1.005-1.025); UMIC TRIGGER UACC YES; Urine Blood Moderate (2+) (Negative); Urine Ketones Negative (Negative); Urine Protein Negative (Neg-Trace)
[2024-06-14 21:44] LABS: UPreg QC Valid YES; Urine Pregnancy NEGATIVE (NEGATIVE)
[2024-06-14 21:54] LABS: Bacteria Urine None Seen (None Seen); Hyaline Casts Urine 0-2 /LPF (0-2); RBC Urine 0-2 /HPF (0-2); Squamous Epithelial Cell Urine 0-2 /HPF (0-2); WBC Urine 0-5 /HPF (0-5)
[2024-06-14 21:56] VITALS: BP 137/73; PULSE 79; RESP 16; TEMP 36.8; O2SAT 98
[2024-06-14 21:57] LABS: Alanine Aminotransferase 10 U/L (0-31); Albumin Level 4.1 g/dL (3.5-5.0); Alkaline Phosphatase 72 U/L (39-117); Anion Gap 14 (12-20); Aspartate Amino Transferase 22 U/L (5-31); Bilirubin Direct 0.2 mg/dL (0.0-0.5); Bilirubin Total 0.6 mg/dL (0.0-1.0); Blood Urea Nitrogen 9 mg/dL (9-16); Carbon Dioxide 22 mmol/L (22-29); Chloride 99 mmol/L (96-108); Creatinine Clr Calc Pharmacy 127.1; Estimated Glomerular Filt Rate > 60; Glucose Random 100 mg/dL (60-115); Lipase 12 U/L (8-78); Potassium 3.4 mmol/L (3.3-5.1); Sodium 132 mmol/L (135-145); Total Protein 6.8 g/dL (6.5-8.0)
[2024-06-14] MEDS: 0.9 % Sodium Chloride 1,000 ML 999 ML IV (22:56)
[2024-06-14] MEDS: ondansetron HCL 4 MG/2 ML VIAL IVPUSH (22:56)
[2024-06-14 23:33] VITALS: BP 135/76; PULSE 73; RESP 17; TEMP 37; O2SAT 100
--- NOTE | 2024-06-15 00:29 | ED_ITS ---
HPI - Nausea/Vomiting/Diarrhea General Chief complaint: Abdominal Pain Stated complaint: vomiting, headache Time Seen by Provider: 06/14/24 21:54 Source: patient Limitations: no limitations History of Present Illness ED Provider: Margot Mays PA-C HPI Narrative: 24-year-old otherwise healthy female presents with nausea vomiting since earlier today. Patient has a sick contacts at work with same symptoms. Denies abdominal pain, diarrhea, fever, preceding cough or cold symptoms. Associated nausea: Yes Related Data Home Medications ?Medication ?Instructions ?Recorded ?Confirmed ibuprofen 600 mg tablet 600 mg PO Q6H PRN 02/10/21 02/28/21 Previous Rx's ?Medication ?Instructions ?Recorded metronidazole 500 mg tablet 500 mg PO BID 7 days #14 tabs 03/03/21 (Flagyl) ibuprofen 600 mg tablet 600 mg PO TID PRN pain #20 tabs 06/23/22 ondansetron 4 mg disintegrating 4 mg PO Q8H PRN nausea and 06/15/24 tablet vomiting #10 tabs Allergies Allergy/AdvReac Type Severity Reaction Status Date / Time carrot Allergy Itching Verified 06/14/24 21:04 Review of Systems 2 Review of Systems: Yes all other systems are reviewed and are negative Constitutional: Constitutional: Denies fatigue and Denies fever(s) Cardiovascular: Cardiovascular: Denies chest pain and Denies dyspnea Respiratory: Respiratory: Denies cough and Denies dyspnea Gastrointestinal: Gastrointestinal: Denies abdominal pain, Denies diarrhea, Reports nausea and Reports vomiting Endocrine: Endocrine: Denies fatigue PMFSH Past Medical History Attestation statement: The following information was validated with the patient. Medical History Asthma Patient denies medical problems Social History Social History Alcohol intake: never Patient Tobacco Use Status: Never used Tobacco Smoked in Last 30 Days: No Use of substances other than those prescribed or required for medical reasons: No Any prior treatment program specific to substance use: No Advance Directives: No Advance Directives Information Provided: No Do you have a plan to hurt others: No Plan Patient : No Physical Exam 2 Vital Signs: Vital Signs: Last Vital Signs Temp 98.6 F 06/14/24 23:33 Pulse 73 06/14/24 23:33 Resp 17 06/14/24 23:33 BP 135/76 06/14/24 23:33 Pulse Ox 100 06/14/24 23:33 O2 Del Method Room Air 06/14/24 23:33 BMI result Body Mass Index 33.7 Const: Other: Alert, well-appearing Orientation/consciousness: patient oriented x3 Resp: Other: Nonlabored respirations Cardio: Other: Normal peripheral perfusion GI: Other: Abdomen is soft, nondistended nontender no guarding Skin: Other: Warm dry no rash Neuro: General: patient oriented x3, no focal motor deficits and CN's II-XI intact bilaterally Psych: Other: Calm cooperative Medications Administered Discontinued Medications Generic Name Dose Route Start Last Admin Trade Name Freq PRN Reason Stop Dose Admin Sodium Chloride 1,000 mls @ 999 mls/hr 06/14/24 22:30 06/14/24 22:56 Ns IV 06/14/24 23:30 999 mls/hr .Q1H1M ELADIA Administration Ondansetron HCl 4 mg 06/14/24 22:30 06/14/24 22:56 Ondansetron Hcl 4 Mg/2 Ml Vial IVPUSH 06/14/24 22:31 4 mg ONCE ONE Administration Medical Decision Making Medical Decision Making MDM Narrative: 24-year-old otherwise healthy female presents with nausea vomiting since earlier today. Patient has a sick contacts at work with same symptoms. Denies abdominal pain, diarrhea, fever, preceding cough or cold symptoms. No relevant chronic issues History: Per patient I have considered the following differential diagnoses: Viral gastroenteritis, acute intra-abdominal pathology Plan: Screening labs including a urinalysis were obtained from triage, everything unremarkable, she is not . Patient has sick contacts with same symptoms, this is likely viral. We will give symptomatic care with fluid and Zofran, no indication for imaging I have independently reviewed the following tests: Labs: No leukocytosis, not anemic, no electrolyte abnormality, urine not infected, patient not Lab Data 06/14/24 21:17 06/14/24 21:17 Labs: Lab Results 06/14/24 06/14/24 Range/Units 21:17 21:35 WBC 7.4 (4.8-10.8) X10*3/uL RBC 4.53 (4.20-5.50) X10*6/uL Hgb 12.9 (12.0-16.0) g/dl Hct 36.4 L (37.0-47.0) % MCV 80.4 (80.0-98.0) fL MCH 28.5 (27.0-33.0) pg MCHC 35.4 H (31.0-35.0) g/dl RDW 11.7 (11.0-16.0) % Plt Count 347 (160-400) X10*3/uL MPV 8.2 L (9.4-12.3) fL Immature Gran % (Auto) 0.3 (0.0-0.4) % Neut % (Auto) 62.5 (45-73) % Lymph % (Auto) 30.6 (20-40) % [place] % (Auto) 5.8 (2-11) % Eos % (Auto) 0.5 (0-4) % Baso % (Auto) 0.3 (0-2) % Lymph # (Auto) 2.3 (1.2-4.9) X10*3/uL [place] # (Auto) 0.4 (0.1-1.2) X10*3/uL Eos # (Auto) 0.0 (0.0-0.4) X10*3/uL Baso # (Auto) 0.0 (0.0-0.2) X10*3/uL Abs Immat Gran (auto) 0.02 (0.00-0.03) X10*3/uL Absolute Neuts (auto) 4.6 (2.0-8.3) x10*3/uL Absolute Nucleated RBC 0.000 (0.0-0.012) X10*3/uL Nucleated RBC % (auto) 0.0 (0.0-0.2) /100WBC Sodium 132 L (135-145) mmol/L Potassium 3.4 (3.3-5.1) mmol/L Chloride 99 (96-108) mmol/L Carbon Dioxide 22 (22-29) mmol/L Anion Gap 14 (12-20) BUN 9 (9-16) mg/dL Creatinine 0.71 (0.5-1.4) mg/dL Estim Creat Clear Calc 127.1 Estimated GFR > 60 Random Glucose 100 (60-115) mg/dL Calcium 9.0 (8.4-10.2) mg/dL Total Bilirubin 0.6 (0.0-1.0) mg/dL Direct Bilirubin 0.2 (0.0-0.5) mg/dL AST 22 (5-31) U/L ALT 10 (0-31) U/L Alkaline Phosphatase 72 (39-117) U/L Total Protein 6.8 (6.5-8.0) g/dL Albumin 4.1 (3.5-5.0) g/dL Lipase 12 (8-78) U/L Urine Color Yellow Urine Appearance Clear Urine pH 6.0 (5.0-9.0) Ur Specific Thompson <= 1.005 (1.005-1.025) Urine Protein Negative (Neg-Trace) mg/dL Urine Glucose (UA) Negative (Negative) mg/dL Urine Ketones Negative (Negative) mg/dL Urine Blood Moderate (2+) H (Negative) Urine Nitrite Negative (Negative) Ur Leukocyte Esterase Trace H (Negative) Urine RBC 0-2 (0-2) /HPF Urine WBC 0-5 (0-5) /HPF Ur Squamous Epith Cells 0-2 (0-2) /HPF Urine Bacteria None Seen (None Seen) Hyaline Casts 0-2 (0-2) /LPF Urine Test NEGATIVE (NEGATIVE) Discharge Plan Discharge Clinical Impression: Viral syndrome Patient Disposition: Home, Self-Care Instructions: Viral Syndrome (ED) Additional Instructions: You likely have virus causing your symptoms. See home care instructions. Uses Zofran as needed for nausea. Follow up with your primary care provider as needed. To know all of your labs including your urinalysis were normal. Prescriptions: New ondansetron 4 mg tablet,disintegrating 4 mg PO Q8H PRN (Reason: nausea and vomiting) Qty: 10 0RF No Action metronidazole [Flagyl] 500 mg tablet 500 mg PO BID 7 Days Qty: 14 0RF Rx Instructions: Take with food, Avoid alcohol and vinegar products ibuprofen 600 mg tablet 600 mg PO TID PRN (Reason: pain) Qty: 20 0RF ibuprofen 600 mg tablet 600 mg PO Q6H PRN Stand Alone Forms: Work/School Release Print Language: Maori
[2024-06-15 00:51] VITALS: BP 138/74; PULSE 73; RESP 17; TEMP 36.8; O2SAT 100
[2024-06-15 00:57] VITALS: BP 138/74; PULSE 73; RESP 17; TEMP 36.8; O2SAT 100
== END 2024-06-15 00:58 | disposition home or self-care (01) ==
PROVIDERS: Emergency Provider Emergency Medicine Emergency Medical Services
DX: B34.9 Viral infection, unspecified (principal); R11.2 Nausea with vomiting, unspecified; R51.9 Headache, unspecified; Z79.899 Other long term (current) drug therapy
CPT/HCPCS: 36415; 80048; 80076; 81001; 81025; 83690; 85025; 96361; 96374; 99284; 99285; J2405

== ENCOUNTER 2024-09-24 07:52 | Emergency (ER) | payer OTHER, SELFPAY ==
--- NOTE | ~2024-09-24 | XR_ITS ---
EXAMINATION: XR FOOT, LEFT CLINICAL INFORMATION: pain s/p fall COMPARISON: None available. TECHNIQUE: AP, lateral, and oblique views of the left foot. FINDINGS: No acute cortical disruption or malalignment. No lytic or blastic lesions. No subcutaneous emphysema. No metallic or radiopaque foreign body. XR/XR foot LT min 3V IMPRESSION: No acute fracture or dislocation. Electronically signed by: Guanakito Sharma MD 09/24/2024 08:19 AM M[facility]ELA
--- NOTE | ~2024-09-24 | XR_ITS ---
EXAMINATION: XR ANKLE, LEFT CLINICAL INFORMATION: pain s/p fall COMPARISON: Correlated to left foot x-rays dated September 24, 2024. TECHNIQUE: AP and oblique views of the left ankle. FINDINGS: Edema pattern bimalleolar involving mostly the lateral malleolus. No acute cortical disruption or gross malalignment. No lytic or blastic lesions. XR/XR ankle LT min 3V IMPRESSION: Edema pattern/soft tissue contusion bimalleolar without acute fracture or gross dislocation. Internal derangement cannot be excluded. Electronically signed by: Guanakito Sharma MD 09/24/2024 08:18 AM M[facility]ELA
[2024-09-24 07:55] VITALS: BP 136/89; PULSE 85; RESP 16; TEMP 36; O2SAT 100; BMI 31.9
--- NOTE | 2024-09-24 09:02 | ED.LOWEXIN ---
HPI - Extremity Injury (Lower) General Chief Complaint: Extremity Injury, Lower Stated Complaint: ankle sprain Time Seen by Provider: 09/24/24 08:04 Source: patient Mode of arrival: ambulatory Limitations: no limitations History of Present Illness HPI Narrative: This is 24 years old the female slipped and fell on Saturday she is complaining of left ankle pain left foot pain. She is unable to fully weight bear in the left. The the fall was a mechanical fall complaint: fall Onset (ago): day(s) (5) Injury: Left: ankle and foot Type of Injury: eversion Place: home Severity: moderate Relieving factors: nothing Exacerbating factors: nothing Context: fall Associated symptoms: snap/pop sensation Other symptoms: none Related Data Home Medications ?Medication ?Instructions ?Recorded ?Confirmed ibuprofen 600 mg tablet 600 mg PO Q6H PRN 02/10/21 02/28/21 Previous Rx's ?Medication ?Instructions ?Recorded metronidazole 500 mg tablet 500 mg PO BID 7 days #14 tabs 03/03/21 (Flagyl) ibuprofen 600 mg tablet 600 mg PO TID PRN pain #20 tabs 06/23/22 ondansetron 4 mg disintegrating 4 mg PO Q8H PRN nausea and 06/15/24 tablet vomiting #10 tabs Allergies Allergy/AdvReac Type Severity Reaction Status Date / Time carrot Allergy Itching Verified 09/24/24 07:57 Review of Systems Constitutional: Constitutional: Reports no additional constitutional complaints ENT: Reports system reviewed and no additional complaints, except as documented Cardiovascular: Cardiovascular: Reports no additional cardiovascular complaints Musculoskeletal: Musculoskeletal: Reports as per HPI [facility] Past Medical History [facility] Narrative: Denies any major medical problems Medical History Asthma Patient denies medical problems Social History Social History Alcohol intake: never Patient Tobacco Use Status: Never used Tobacco Advance Directives: No Advance Directives Information Provided: No Physical Exam Vital Signs: Vital Signs: Last Vital Signs Temp 96.8 F 09/24/24 09:17 Pulse 85 09/24/24 09:17 Resp 16 09/24/24 09:17 BP 136/89 09/24/24 09:17 Pulse Ox 100 09/24/24 09:17 O2 Del Method Room Air 09/24/24 09:17 BMI result Body Mass Index 31.9 No acute distress looks well sitting in the stretcher Const: General: cooperative Nutritional Appearance: average body habitus Orientation/consciousness: patient oriented x3 Limitations: no limitations HEENT: Head: Yes normal to inspection Ears: hearing grossly normal bilaterally General nose exam: Normal external nose present Face and sinus: Yes normal facial exam Mouth: Normal oral and palatal mucosa present Neck: Neck: Yes normal visual inspection Chest: Chest palpation & inspection: normal inspection of the chest Resp: Effort & Inspection: normal respiratory effort Cardio: Jugular venous distension: no JVD Rate: regular rate Rhythm: regular rhythm GI: Inspection: Yes normal to inspection Palpation (GI): Soft to palpation, not firm, nontender and no guarding Auscultation: normal bowel sounds Neuro: General: patient oriented x3 and CN's II-XI intact bilaterally Extrem: Other: Examination of the lower extremity shows swelling and tenderness in the left ankle decreased room good pulses Course Reevaluation(s) Reevaluation #1: X-ray no fracture no dislocation soft tissue edema she can be discharged home follow-up as outpatient with the ortho Time: 09:06 Medical Decision Making Medical Decision Making [facility] Narrative: Left ankle swelling after injury we will get x-ray Differential Diagnosis Differential Diagnoses: The differential diagnosis associated with the presentation includes Ankle fracture ankle dislocation ligament injury Admission/Observation Consideration of admission/observation: Escalation of care including admission/observation considered Independent Interpretation I performed an independent interpretation of an: Plain X-Ray Radiology Impression Discussion of test interpretation with radiology: I have reviewed the radiologist's reading. Radiologist Impression: d September 24, 2024. TECHNIQUE: AP and oblique views of the left ankle. FINDINGS: Edema pattern bimalleolar involving mostly the lateral malleolus. No acute cortical disruption or gross malalignment. No lytic or blastic lesions. XR/XR ankle LT min 3V IMPRESSION: Edema pattern/soft tissue contusion bimalleolar without acute fracture or gross dislocation. Internal derangement cannot be excluded. Electronically signed by: Guanakito Sharma MD 09/24/2024 08:18 AM EST Dictated By: Guanakito Wilkerson MD Signed By: <Electronically signed by Guanakito Bolton MD in OV> 09/24/24 0818 Discharge Plan Discharge Clinical Impression: Ankle sprain Qualifiers: Encounter type: initial encounter Involved ligament of ankle: unspecified ligament Laterality: left Qualified Code(s): S93.402A - Sprain of unspecified ligament of left ankle, initial encounter Patient Disposition: Home, Self-Care Instructions: Ankle Sprain (DC) Additional Instructions: Rest/ice/elevation/you could take ibuprofen or Tylenol for pain Prescriptions: No Action metronidazole [Flagyl] 500 mg tablet 500 mg PO BID 7 Days Qty: 14 0RF Rx Instructions: Take with food, Avoid alcohol and vinegar products ibuprofen 600 mg tablet 600 mg PO TID PRN (Reason: pain) Qty: 20 0RF ondansetron 4 mg tablet,disintegrating 4 mg PO Q8H PRN (Reason: nausea and vomiting) Qty: 10 0RF ibuprofen 600 mg tablet 600 mg PO Q6H PRN Referrals: Dexter Hong MD [Physician] - 09/28/24 Stand Alone Forms: Work/School Release Interventions: ED Discharge Assessment Last Done: 09/24/24 09:17 Discharge Date/Time: 09/24/24 09:17 Print Language: Nigerian
--- OUTSIDE RECORDS SUMMARY | 2024-09-24 09:07 | XMS_ITS | Clinical Summary ---
Author Organization [facility] Address [address] [place] [address] Care Team Providers Care Crew Manager Name Role Phone Irina Mcginnis MD Primary Care Provider [phone] Source Comments PLEASE NOTE, if this patient is a minor, it may be UNLAWFUL to discuss sensitive information that is contained in these records (such as FAMILY PLANNING, MENTAL HEALTH or SUBSTANCE ABUSE) with the minor patient's parent or other person without the patient's specific authorization.[facility] Allergies No known active allergies Medications vitamin A & D ointment Apply topically as needed for dry skin. 120 g 5 3 Active acetaminophen (TYLENOL) 325 mg tabletIndication s:Upper respiratory infection Take 1 Tab by mouth every 6 (six) hours as needed for pain or fever. 20 Tab 1 5 Active dextromethorphan (DELSYM) 30 mg/5 mL liquidIndication s:Upper respiratory infection Take 5 mL by mouth 2 (two) times daily. 150 mL 0 5 Active Active Problems Problem Noted Date Diagnosed Date Xerosis of skin 07/13/2013 Acanthosis nigricans 07/13/2013 Obese 09/01/2012 Immunizations Name Administration Dates Next Due DTAP (DAPTACEL),5 PERTUSSIS ANTIGENS ,10/22/2001,2000,09/04,2000 HEP B, PED/ADOL 2000,2000,2000 Hep A, Ped/adol, 2 Dose 10/05/2009,2000 Hib (PRP-T) 07/23/2001, 1,2000,07/05 INFLUENZA A (H1N1) VACCINE (CMS) 10/05/2009 INFLUENZA, SEASONAL, INJECTABLE 08/01/19 11,05/04/2005,04/24/2004,06/04 INFLUENZA, SEASONAL, INJECTA BLE, PRESERVATIVE FREE 04/06/2013 IPV 04/24/2004, 1,2000,07/05 MENINGOCOCCAL VACCINE,CONJUG ATE (NON-INTERFACE) 08/20/2011 MMR (MMR II/Priorix) 04/24/2004,04/23/2001 PNEUMOCOCCAL CONJUGATE PCV 7 07/23/2001, 2000,2000,07/05 TDAP 08/20/2011 Varicella, Live Vaccine 06/18/2007,04/23/2001 Social History Tobacco Use Types Packs/Day Years Used Date Smoking Tobacco: Never Alcohol Use Standard Drinks/Week Comments No 0 (1 standard drink = 0.6 oz pur e alcohol) Social Connections Answer Date Recorded Social Connections and Isolation 0 03/21/2019 Financial Resource Strain Answer Date R ecorded Financial Resource Strain 0 2018 Stress Answer Date Recorded Stress 0 03/21/2019 Physical Activity Answer Date Recorded Physical Activity 0 03/21/2019 Food Insecurity Answer Date Recorded Food 0 03/21/2019 Transportation Needs Answer Date Record ed Transportation 0 03/21/2019 Housing Stability Answer Date Recorded Housing 0 03/21/2019 Safety and Environment Answer Date Lance rded Safety 0 03/21/2019 Utilities Answer Date Recorded Utilities 0 03/21/2019 Employment Answer Date Recorded Employment 0 03/21/2019 Comments No Sex and Gender Information Value Date Recorded Sex Assigned at Not on file Legal Sex Female 11:36 AM PDT Gender Identity Not on file Sexual Orientation Not on file Last Filed Vital Signs Vital Sign Reading Time Taken Comments Blood Pressure 110/80 12/17/2014 11:39 AM EDT Pulse 100 12/17/2014 11:39 AM EDT Temperature 36.4 ??C (97.6 ??F) 12/17/2014 11:39 AM E DT Respiratory Rate 15 12/17/2014 11:39 AM EDT Oxygen Saturation - - Inhaled Oxygen Concentration - - Weight 68 kg (150 lb) 12/17/2014 11:39 AM EDT Height 158.1 cm (5' 2.25 ) 12/17/2014 11:39 AM E DT Body Mass Index 27.22 12/17/2014 11:39 AM EDT Plan of Treatment Not on file Insurance [facility] Member Subscriber Plan / Payer (Ef fective 2013-Present) Name:Mi Jeffries Relation to Subscriber:Self Name:Mi Jeffries Payer ID:[id number] Group ID:Not on file Type:Medicaid Address: [facility] [id number] [place] [address] Care Teams Crew Manager Relationship Specialty Start Date End Date Irina Mcginnis MD [id number] [place] [id number] PCP - General Pediatrics 07/13/13
[2024-09-24 09:17] VITALS: BP 136/89; PULSE 85; RESP 16; TEMP 36; O2SAT 100
--- NOTE | 2024-09-24 09:17 | PC.NURSE ---
boot applied to LLE - pt tolerated well.
== END 2024-09-24 09:17 | disposition home or self-care (01) ==
PROVIDERS: Emergency Provider Emergency Medicine
DX: S93.402A Sprain of unspecified ligament of left ankle, initial encounter (principal); W10.8XXA Fall (on) (from) other stairs and steps, initial encounter; M25.572 Pain in left ankle and joints of left foot; Y93.9 Activity, unspecified; Y92.89 Other specified places as the place of occurrence of the external cause; Y99.9 Unspecified external cause status
CPT/HCPCS: 73610; 73630; 99283

== ENCOUNTER → 2024-09-24 08:00 | Outpatient (BNV) | payer OTHER, SELFPAY | PROVIDERS: Emergency Provider Emergency Medicine; Visit Provider Radiology Diagnostic Radiology | DX: M25.572 Pain in left ankle and joints of left foot (principal) | CPT/HCPCS: 73610; 73630 ==

== ENCOUNTER 2025-05-12 14:59 | Emergency (ER) | payer OTHER, SELFPAY ==
--- NOTE | ~2025-05-12 | XR_ITS ---
CLINICAL HISTORY: pain s p fall 4 view right knee Comparison: None provided Findings: No fractures or dislocations. No significant loss of joint space, osteophytes, or erosions. No joint effusion. No radiopaque foreign body. IMPRESSION: 1. No acute findings. This document has been electronically signed by: Lg Francisco MD on 05/12/2025 17:40:59
--- NOTE | ~2025-05-12 | CT_ITS ---
EXAMINATION: CT HEAD WITHOUT CONTRAST CLINICAL INFORMATION: Fall with head strike and dizziness. COMPARISON: CT brain 12/12/2020. TECHNIQUE: Contiguous axial imaging was performed from the skull base to vertex without intravenous administration of contrast. This CT examination was performed using dose optimization techniques as appropriate, variously including the following: *Automated exposure control *Adjustment of mA and/or kV according to patient size (this includes techniques or standardized protocols for targeted exams where dose is matched to indication/reason for exam; i.e. extremities or head) *Use of iterative reconstruction technique DLP: 655 mGy/cm. FINDINGS: There is no acute intra-axial, extra-axial bleed, masses or midline shift. There is no acute infarction in evolution. There is no edema. The gloria to white matter differentiation is maintained normal. The lateral ventricles are symmetrical in size and configuration without enlargement. Bone windows reveal no calvarial abnormality. There is no scalp soft tissue swelling. Bilateral paranasal sinuses and mastoid air cells are well-aerated. CT/CT head/brain wo IV con IMPRESSION: No acute intracranial process seen. No major change from previous exam 12/12/2020. Electronically signed by: Giorgio Alvarado MD 05/12/2025 04:38 PM EDT
[2025-05-12 15:04] VITALS: BP 151/102; PULSE 97; RESP 16; TEMP 36.2; O2SAT 98; BMI 35.5
--- NOTE | 2025-05-12 15:06 | ED.GENADULT ---
HPI - General Adult General Chief complaint: Extremity Injury, Lower Stated complaint: fall @ work , knee pain Time Seen by Provider: 05/12/25 19:20 History of Present Illness ED Provider: Christiano FELTON narrative: The patient is a 25-year-old female who says that she was at work today carrying boxes when she tripped on the corner palate that she had not seen. She landed on her right knee. She had right knee pain. She also reports that several days ago at work she struck her head on a shelf and has been having headaches and dizziness since then as well. She comes to the emergency room for evaluation of these injuries. Related Data Home Medications ?Medication ?Instructions ?Recorded ?Confirmed ibuprofen 600 mg tablet 600 mg PO Q6H PRN 02/10/21 02/28/21 Previous Rx's ?Medication ?Instructions ?Recorded metronidazole 500 mg tablet 500 mg PO BID 7 days #14 tabs 03/03/21 (Flagyl) ibuprofen 600 mg tablet 600 mg PO TID PRN pain #20 tabs 06/23/22 ondansetron 4 mg disintegrating 4 mg PO Q8H PRN nausea and 06/15/24 tablet vomiting #10 tabs acetaminophen 500 mg capsule 1,000 mg (2 x 500 mg) PO Q8H PRN 05/12/25 fever or pain #14 caps ibuprofen 400 mg tablet 400 mg PO Q6H PRN pain #14 tabs 05/12/25 Allergies Allergy/AdvReac Type Severity Reaction Status Date / Time carrot Allergy Itching Verified 05/12/25 15:06 Review of Systems Review of Systems: Yes all other systems are reviewed and are negative PMFSH Past Medical History Medical History Asthma Patient denies medical problems Social History Social History Alcohol intake: never Patient Tobacco Use Status: Never used Tobacco Smoked in Last 30 Days: No Use of substances other than those prescribed or required for medical reasons: No Advance Directives: No Advance Directives Information Provided: Yes Patient : No Physical Exam ED Vital Signs: Vital Signs - 24 hr 05/12/25 15:04 Temperature 97.2 F Pulse Rate 97 Respiratory Rate 16 Blood Pressure 151/102 H Pulse Oximetry 98 Oxygen Delivery Method Room Air BMI result Body Mass Index 35.5 Const Other: The patient is a 25-year-old woman who was awake and alert. She does not appear obviously ill or in distress. Orientation/consciousness: patient oriented x3 HENMT Other: No raccoon eyes, no zavala sign. Pharynx is normal. Eyes Other: Pupils are round equal, conjunctivae are clear, extraocular movements intact Neck Other: No posterior midline C-spine tenderness. Good range of motion of the neck without pain. C-spine is clinically clear. Resp Effort & Inspection: normal respiratory effort Auscultation: clear to auscultation bilaterally Cardio Rate: regular rate Rhythm: regular rhythm Heart sounds: S1 normal heart sound present and S2 normal heart sound present GI Other: Abdomen is soft and nontender Skin Other: The skin is dry and unremarkable Neuro General: patient oriented x3, tone normal, moves all extremities, no focal motor deficits and CN's II-XI intact bilaterally Extrem Other: The patient has generalized tenderness to the right knee without definite focal swelling or deformity. Course Course Course Narrative: This is a Rapid Medical Examination (RME) performed by Alhaji Jansen PA-C in triage. Full HPI, ROS, assessment and treatment plan per primary provider in the Main ED. Hx: 25 yo F here for eval s/p fall this morning. reports feeling dizzy causing her to trip and fall with headstrike. no LOC. no thinners. attempted to continue working however feels light headed. also endorses head strike on a shelf at work 4 days ago - no LOC Plan: labs, ekg, ct head Medical Decision Making Medical Decision Making MDM Narrative: The patient is a 25-year-old female who presents to the emergency room after sustaining an injury to her right knee when she tripped and fell at work. She also reports that she has been having headache and dizziness since striking her head at work a few days ago. Diagnostic testing studies were ordered at triage that included a head CT which is negative and a right knee x-ray which is negative. Also labs which are unremarkable. Clinically the patient looks reasonably well. I think she has soft tissue injuries. She will be advised to use ibuprofen and acetaminophen as needed. She was given a work note. Lab Data 05/12/25 15:16 05/12/25 15:16 Labs: Lab Results 05/12/25 Range/Units 15:16 WBC 8.1 (4.8-10.8) X10*3/uL RBC 5.02 (4.20-5.50) X10*6/uL Hgb 14.0 (12.0-16.0) g/dl Hct 40.4 (37.0-47.0) % MCV 80.5 (80.0-98.0) fL MCH 27.9 (27.0-33.0) pg MCHC 34.7 (31.0-35.0) g/dl RDW 12.5 (11.0-16.0) % Plt Count 350 (160-400) X10*3/uL MPV 8.6 L (9.4-12.3) fL Immature Gran % (Auto) 0.2 (0.0-0.4) % Neut % (Auto) 82.0 H (45-73) % Lymph % (Auto) 13.0 L (20-40) % Larue % (Auto) 4.2 (2-11) % Eos % (Auto) 0.2 (0-4) % Baso % (Auto) 0.4 (0-2) % Lymph # (Auto) 1.1 L (1.2-4.9) X10*3/uL Larue # (Auto) 0.3 (0.1-1.2) X10*3/uL Eos # (Auto) 0.0 (0.0-0.4) X10*3/uL Baso # (Auto) 0.0 (0.0-0.2) X10*3/uL Abs Immat Gran (auto) 0.02 (0.00-0.03) X10*3/uL Absolute Neuts (auto) 6.6 (2.0-8.3) x10*3/uL Absolute Nucleated RBC 0.000 (0.0-0.012) X10*3/uL Nucleated RBC % (auto) 0.0 (0.0-0.2) /100WBC Sodium 142 (135-145) mmol/L Potassium 4.2 D (3.3-5.1) mmol/L Chloride 109 H (96-108) mmol/L Carbon Dioxide 24 (22-29) mmol/L Anion Gap 13 (12-20) BUN 10 (9-16) mg/dL Creatinine 0.72 (0.5-1.4) mg/dL Estim Creat Clear Calc 127.8 Estimated GFR > 60 Random Glucose 102 (60-115) mg/dL Calcium 9.2 (8.4-10.2) mg/dL Magnesium 1.9 (1.6-2.6) mg/dL Total Bilirubin 0.8 (0.0-1.0) mg/dL AST 24 (5-31) U/L ALT 11 (0-31) U/L Alkaline Phosphatase 70 (39-117) U/L Troponin I High Sens < 2.7 (<3.5-17.0) ng/L Total Protein 7.4 (6.5-8.0) g/dL Albumin 4.7 (3.5-5.0) g/dL Beta HCG, Quant < 2 mIU/mL Discharge Plan Discharge Clinical Impression: Contusion of right knee, Head injury Patient Disposition: Home, Self-Care Additional Instructions: Your testing in the emergency room today is very reassuring. There are no dangerous findings. Please use ibuprofen and acetaminophen as needed for discomfort. Prescriptions has been sent for these medications to your pharmacy. Since these injuries occurred at work you may follow up with the [facility] if you have ongoing concerns. You may also follow up with your regular doctor instead. However if you are significantly worse please return to the emergency room for re-evaluation. Prescriptions: New ibuprofen 400 mg tablet 400 mg PO Q6H PRN (Reason: pain) Qty: 14 0RF acetaminophen 500 mg capsule 1,000 mg PO Q8H PRN (Reason: fever or pain) Qty: 14 0RF No Action metronidazole [Flagyl] 500 mg tablet 500 mg PO BID 7 Days Qty: 14 0RF Rx Instructions: Take with food, Avoid alcohol and vinegar products ibuprofen 600 mg tablet 600 mg PO TID PRN (Reason: pain) Qty: 20 0RF ondansetron 4 mg tablet,disintegrating 4 mg PO Q8H PRN (Reason: nausea and vomiting) Qty: 10 0RF ibuprofen 600 mg tablet 600 mg PO Q6H PRN Referrals: [facility] [Provider Group] [facility] [Provider Group] Stand Alone Forms: Work/School Release Print Language: Czech
--- NOTE | 2025-05-12 15:07 | ECG_ITS ---
Test Reason : dizzy Blood Pressure : */* mmHG Vent. Rate : 95 BPM Atrial Rate : 95 BPM P-R Int : 154 ms QRS Dur : 88 ms QT Int : 346 ms P-R-T Axes : 65 75 47 degrees QTcB Int : 434 ms Normal sinus rhythm Normal ECG No previous ECGs available Referred By: Eve Jansen Electronically Signed By: Erasmo Lay
[2025-05-12 15:25] LABS: MANUAL DIFF FLAG NO
[2025-05-12 15:27] LABS: Hematocrit 40.4 % (37.0-47.0); Hemoglobin 14.0 g/dl (12.0-16.0); Imm Gran Abs Auto 0.02 X10*3/uL (0.00-0.03); Imm Gran Pct Auto 0.2 % (0.0-0.4); Lymphocytes Absolute Auto 1.1 X10*3/uL (1.2-4.9); Mean Corpuscular HGB Conc 34.7 g/dl (31.0-35.0); Mean Corpuscular Hemoglobin 27.9 pg (27.0-33.0); Mean Corpuscular Volume 80.5 fL (80.0-98.0); NRBC Abs Auto 0.000 X10*3/uL (0.0-0.012); NRBC Pct Auto 0.0 /100WBC (0.0-0.2); Platelet Count 350 X10*3/uL (160-400); Red Blood Count 5.02 X10*6/uL (4.20-5.50); White Blood Count 8.1 X10*3/uL (4.8-10.8)
[2025-05-12 15:54] LABS: Alanine Aminotransferase 11 U/L (0-31); Albumin Level 4.7 g/dL (3.5-5.0); Anion Gap 13 (12-20); Aspartate Amino Transferase 24 U/L (5-31); Blood Urea Nitrogen 10 mg/dL (9-16); Calcium 9.2 mg/dL (8.4-10.2); Carbon Dioxide 24 mmol/L (22-29); Chloride 109 mmol/L (96-108); Creatinine Clr Calc Pharmacy 127.8; Estimated Glomerular Filt Rate > 60; Magnesium 1.9 mg/dL (1.6-2.6); Potassium 4.2 mmol/L (3.3-5.1); Sodium 142 mmol/L (135-145); Total Protein 7.4 g/dL (6.5-8.0); Troponin-I High Sensitivity < 2.7 ng/L (<3.5-17.0)
[2025-05-12 16:00] LABS: Alkaline Phosphatase 70 U/L (39-117)
--- NOTE | 2025-05-12 19:29 | PC.NURSE ---
provider into see pt.
[2025-05-12 19:39] VITALS: BP 147/86; PULSE 87; RESP 20; TEMP 36.6; O2SAT 98
--- NOTE | 2025-05-12 19:40 | PC.NURSE ---
reviewed discharge instructions with pt. pt verbalized understanding, no sign of distress.
== END 2025-05-12 19:41 | disposition home or self-care (01) ==
PROVIDERS: Physician Assistant Medical; Emergency Provider Emergency Medicine
DX: S80.01XA Contusion of right knee, initial encounter (principal); W19.XXXA Unspecified fall, initial encounter; Y93.9 Activity, unspecified; Y92.9 Unspecified place or not applicable; Y99.0 Civilian activity done for income or pay; R42 Dizziness and giddiness; M25.561 Pain in right knee
CPT/HCPCS: 36415; 70450; 73564; 80053; 83735; 84484; 84702; 85025; 93005; 99284

== ENCOUNTER → 2025-05-12 15:06 | Outpatient (BNV) | payer OTHER, SELFPAY | PROVIDERS: Visit Provider Radiology Diagnostic Radiology | DX: S09.90XA Unspecified injury of head, initial encounter (principal); M25.551 Pain in right hip | CPT/HCPCS: 70450; 73564 ==

== ENCOUNTER → 2025-05-12 15:07 | Outpatient (BNV) | payer OTHER, SELFPAY | PROVIDERS: Emergency Provider Emergency Medicine; Visit Provider Internal Medicine Cardiovascular Disease | DX: R42 Dizziness and giddiness (principal) | CPT/HCPCS: 93010 ==